=== PATIENT | female | born 1960 | race Two or more races ===

== ENCOUNTER 2018-04-16 11:40 | Outpatient (CLI) | payer OTHER | END 2018-04-16 11:47 | disposition home or self-care (01) | LOC: RAD 501 11:40 | DX: M25.532 Pain in left wrist (principal) ==

== ENCOUNTER 2020-03-15 08:26 | Outpatient (CLI) | payer OTHER | END 2020-03-15 08:40 | disposition home or self-care (01) | LOC: RAD 08:26 | DX: M75.32 Calcific tendinitis of left shoulder (principal); M75.02 Adhesive capsulitis of left shoulder; M75.112 Incomplete rotator cuff tear or rupture of left shoulder, not specified as traumatic ==